=== PATIENT | male | born 1975 | race African-American/Black ===

== ENCOUNTER 2018-02-26 20:11 | Emergency (ER) | payer MEDICAID ==
[~2018-02-26] VITALS: Ht 180.3 cm; Wt 100.0 kg
[~2018-02-26 20:11] MED LIST: CLON0.1T; CLON1TAB; PHEN100C4; SEROQUEL
[2018-02-27] MEDS ORDERED: TRAMADOL 50MG TABLET PO SCH (01:00)
[2018-02-27] MEDS ORDERED: PHENYTOIN SODIUM EXTENDED 100MG CAPSULE PO SCH (01:00)
[2018-02-27] MEDS ORDERED: IBUPROFEN 600MG TABLET PO SCH (01:00)
[2018-02-27 01:30] VITALS: BP 128/77
== END 2018-02-27 01:45 | disposition home or self-care (01) ==
LOC: ER 20:11
DX: S82.092A Other fracture of left patella, initial encounter for closed fracture (principal); I10 Essential (primary) hypertension; E11.9 Type 2 diabetes mellitus without complications; G40.909 Epilepsy, unspecified, not intractable, without status epilepticus; F31.9 Bipolar disorder, unspecified; Z87.828 Personal history of other (healed) physical injury and trauma; Z59.0 Homelessness; Y08.89XA Assault by other specified means, initial encounter; Y93.89 Activity, other specified; Y92.89 Other specified places as the place of occurrence of the external cause
CPT/HCPCS: 73562; 99284

== ENCOUNTER 2019-09-14 23:31 | Emergency (ER) | payer MEDICAID ==
[~2019-09-14] VITALS: Ht 185.4 cm; Wt 100.0 kg
[2019-09-15] MEDS ORDERED: KETOROLAC 30MG/ML VIAL IM ONE (02:15)
[2019-09-15 09:00] VITALS: BP 118/65
== END 2019-09-15 10:45 | disposition home or self-care (01) ==
LOC: ER 23:31
DX: M54.5 Low back pain (principal); E11.9 Type 2 diabetes mellitus without complications; I10 Essential (primary) hypertension; G40.909 Epilepsy, unspecified, not intractable, without status epilepticus; F31.9 Bipolar disorder, unspecified; Z59.0 Homelessness; W01.0XXA Fall on same level from slipping, tripping and stumbling without subsequent striking against object, initial encounter; Y93.89 Activity, other specified; Y92.488 Other paved roadways as the place of occurrence of the external cause
CPT/HCPCS: 72100; 96372; 99283; J1885

== ENCOUNTER 2020-04-17 04:18 | Emergency (ER) | payer MEDICAID, OTHER ==
[~2020-04-17] VITALS: Ht 185.4 cm; Wt 78.0 kg
[2020-04-17 04:34] VITALS: BP 16/76
[2020-04-17] MEDS ORDERED: ACETAMINOPHEN 325MG TABLET PO ONE (06:45)
== END 2020-04-17 07:30 | disposition home or self-care (01) ==
LOC: ER 04:48
DX: M79.672 Pain in left foot (principal); M79.671 Pain in right foot; G40.909 Epilepsy, unspecified, not intractable, without status epilepticus; E11.9 Type 2 diabetes mellitus without complications; I10 Essential (primary) hypertension; F31.9 Bipolar disorder, unspecified; F20.9 Schizophrenia, unspecified
CPT/HCPCS: 93005; 99283

== ENCOUNTER 2022-10-01 17:19 | Emergency (ER) | payer OTHER ==
[~2022-10-01] VITALS: Ht 172.7 cm; Wt 78.0 kg
[2022-10-01 17:33] VITALS: BP 148/87
[2022-10-01] MEDS ORDERED: BUSP10TA4 MT (17:53)
[2022-10-02] MEDS ORDERED: IBUP-2029 PO (04:12)
[2022-10-03] MEDS ORDERED: SULF1TAB48 MT (01:42)
[2022-10-03] MEDS ORDERED: METF-414 MT (01:42)
[2022-10-03] MEDS ORDERED: ACET-2708 MT ×3 (01:43→21:48)
== END 2022-10-01 19:24 | disposition home or self-care (01) ==
LOC: ER 17:19
DX: Z76.0 Encounter for issue of repeat prescription (principal)
CPT/HCPCS: 99281

== ENCOUNTER 2024-06-01 00:39 | Emergency (ER) | payer SELFPAY ==
[~2024-06-01] VITALS: Ht 177.8 cm; Wt 109.7 kg
[~2024-06-01 00:39] MED LIST changes: +ACET-2708 MT; +BUSP10TA4 MT; +BUSP30TA2 MT; -CLON1TAB; +CLON1TAB2; +FLUO20CA33 MT; +IBUP-2029 PO; +METF-414 MT; +SULF1TAB48 MT
[2024-06-01 00:41] VITALS: PULSE 113; O2SAT 96
[2024-06-01 00:53] VITALS: BP 163/99; TEMP 98.6
[2024-06-01] MEDS ORDERED: QUET200T MT (01:26)
[2024-06-01] MEDS ORDERED: BUSP15TA3 MT (01:26)
[2024-06-01] MEDS ORDERED: FLUO20CA33 MT (01:26)
[2024-06-01 01:29] VITALS: RESP 19
== END 2024-06-01 01:35 | disposition home or self-care (01) ==
LOC: ER 00:39
DX: G40.909 Epilepsy, unspecified, not intractable, without status epilepticus (principal); F41.9 Anxiety disorder, unspecified; F31.9 Bipolar disorder, unspecified; I10 Essential (primary) hypertension; Z98.890 Other specified postprocedural states; Z76.0 Encounter for issue of repeat prescription; Z79.899 Other long term (current) drug therapy
CPT/HCPCS: 99281